=== PATIENT | male | born 1945 | race Two or more races ===

== ENCOUNTER 2020-02-16 07:49 | Outpatient (CLI) | payer OTHER | END 2020-02-16 08:04 | disposition home or self-care (01) | LOC: LAB 07:49 | PROVIDERS: ATTEND Internal Medicine Cardiovascular Disease | DX: I10 Essential (primary) hypertension (principal); E11.9 Type 2 diabetes mellitus without complications; E03.8 Other specified hypothyroidism; E78.2 Mixed hyperlipidemia; N40.0 Benign prostatic hyperplasia without lower urinary tract symptoms; E55.9 Vitamin D deficiency, unspecified; Z12.11 Encounter for screening for malignant neoplasm of colon; J44.9 Chronic obstructive pulmonary disease, unspecified ==

== ENCOUNTER 2020-02-29 10:48 | Outpatient (CLI) | payer OTHER | END 2020-02-29 10:59 | disposition home or self-care (01) | LOC: RX STUDY 10:48 | PROVIDERS: ATTEND Internal Medicine Cardiovascular Disease | DX: K21.9 Gastro-esophageal reflux disease without esophagitis (principal) ==

== ENCOUNTER 2022-12-08 09:38 | Outpatient (CLI) | payer OTHER | END 2022-12-08 09:43 | disposition home or self-care (01) | LOC: RAD 09:38 | DX: I10 Essential (primary) hypertension (principal) ==

== ENCOUNTER 2024-05-04 03:14 | Inpatient (IN) | payer OTHER ==
[~2024-05-04] VITALS: Ht 213.4 cm; Wt 69.9 kg
[2024-05-04] MEDS ORDERED: 0.9 % SODIUM CHLORIDE 1,000 ML IV ONE (03:45)
[2024-05-04 04:14] LABS: HEMATOCRIT 46.4 % (39.0-48.0); HEMOGLOBIN 15.9 g/dL (13-16.00); MEAN CORPUSCULAR HEMOGLOBIN 30.5 pg (27.00-32.0); MEAN CORPUSCULAR HGB CONC 34.2 g/dl (32.0-36.0); PLATELET COUNT 199 K/uL (150-450); RED BLOOD COUNT 5.21 M/uL (4.00-6.00); RED CELL DISTRIBUTION WIDTH 13.1 % (11.5-14.5)
[2024-05-04 04:18] LABS: PH,URINE 5.5 (5.0-8.0); URINE APPEARANCE Clear; URINE BILIRRUBIN Negative (NEGATIVE); URINE BLOOD Negative; URINE COLOR Dark Yellow; URINE GLUCOSE Negative (NEGATIVE); URINE KETONE Trace (NEGATIVE); URINE LEUKOCYTE Negative; URINE NITRATE Negative; URINE PROTEIN 30 (NEGATIVE)
[2024-05-04 04:21] LABS: URINE BACTERIA 18.8 uL (0.0-1933); URINE CAST 1.67 uL (0.0-1.40); URINE EPITHELIAL CELLS 8.3 uL (0.0-38.8); URINE RBC 13.8 uL (0.0-20.8); URINE WBC 4.7 uL (0.0-23.2)
[2024-05-04] MEDS ORDERED: DONEPEZIL HCL10 MG PO (04:27)
[2024-05-04] MEDS ORDERED: MIRTAZAPINE30 MG PO (04:27)
[2024-05-04] MEDS ORDERED: QUETIAPINE FUM400 MG PO (04:27)
[2024-05-04] MEDS ORDERED: TRAZODONE HCL150 MG (04:27)
[2024-05-04 04:28] LABS: PARTIAL THROMBOPLASTIN TIME 27.9 SECONDS (22.0-34.0); PROTHROMBIN TIME 10.9 SECONDS (9.0-11.5)
[2024-05-04] MEDS ORDERED: DEPAKOTE ER250 MG PO (04:28)
[2024-05-04] MEDS ORDERED: QUETIAPINE FUM300 MG PO (04:28)
[2024-05-04 04:35] LABS: ALBUMIN 3.2 gm/dL (3.4-5.0); BILIRUBIN TOTAL 0.33 mg/dL (0.3-1.2); CREATININE SERUM 1.48 mg/dL (0.70-1.30); GFR 45.62; GLOBULINA 3.6 G/DL (2.4-3.5); POTASSIUM 5.48 mEq/L (3.5-5.1); TOTAL PROTEIN 6.8 gm/dL (6.4-8.2)
[2024-05-04 10:41] VITALS: BP 119/81
[2024-05-04] MEDS ORDERED: ACETAMINOPHEN 500 MG GEL..CAP PO PRN (10:45)
[2024-05-04] MEDS ORDERED: 0.9 % SODIUM CHLORIDE 1,000 ML IV SCH (10:45)
[2024-05-04] MEDS ORDERED: AMINO ACIDS/PROTEIN HYDROLYS 30 ML BLIST.PACK PO SCH (10:45)
[2024-05-04] MEDS ORDERED: DONEPEZIL HCL 10 MG TABLET PO SCH ×2 (11:22→17:00)
[2024-05-04] MEDS ORDERED: QUETIAPINE FUMARATE 100 MG TABLET PO SCH ×2 (11:22→17:00)
[2024-05-04] MEDS ORDERED: TRAZODONE HCL 50 MG TABLET PO SCH ×2 (11:23→17:00)
[2024-05-04 12:05] LABS: ALBUMIN 2.8 gm/dL (3.4-5.0); CALCIUM 7.9 mg/dL (8.5-10.1); CREATININE SERUM 1.16 mg/dL (0.70-1.30); GFR 60.43; PHOSPHOROUS 2.8 mg/dL (2.5-4.9); POTASSIUM 4.68 mEq/L (3.5-5.1)
[2024-05-04 12:08] LABS: MAGNESIUM 2.2 mg/dL (1.8-2.4); PHOSPHOROUS 2.9 mg/dL (2.5-4.9)
[2024-05-04] MEDS ORDERED: REMDESIVIR 100 MG VIAL IV ONE (14:00)
[2024-05-04 14:42] LABS: C-REACTIVE PROTEIN 7.08 MG/DL (0.00-0.29); FERRITIN 607.2 NG/ML (26-388)
[2024-05-04 15:52] VITALS: BP 138/80; O2SAT 97
[2024-05-04 17:12] VITALS: BP 125/93; O2SAT 96
[2024-05-05 02:57] VITALS: BP 118/84; O2SAT 98
[2024-05-05] MEDS ORDERED: REMDESIVIR 100 MG VIAL IV SCH (09:00)
[2024-05-05] MEDS ORDERED: METOPROLOL SUCCINATE 25 MG TAB.SR.24H PO NR (10:57)
[2024-05-05 11:56] LABS: ALBUMIN 2.5 gm/dL (3.4-5.0); BILIRUBIN TOTAL 0.3 mg/dL (0.3-1.2); CALCIUM 7.7 mg/dL (8.5-10.1); CREATININE SERUM 1.08 mg/dL (0.70-1.30); GFR 65.62; POTASSIUM 3.95 mEq/L (3.5-5.1); TOTAL PROTEIN 5.5 gm/dL (6.4-8.2)
[2024-05-05] MEDS ORDERED: QUETIAPINE FUMARATE 25 MG TABLET PO SCH (12:59)
[2024-05-05 19:16] VITALS: BP 142/85; O2SAT 96
[2024-05-05] MEDS ORDERED: SENNOSIDES 1 TAB TABLET PO SCH (21:00)
[2024-05-05 22:34] VITALS: BP 112/75; O2SAT 97
[2024-05-06 02:11] VITALS: BP 116/87; O2SAT 90
[2024-05-06] MEDS ORDERED: METOPROLOL SUCCINATE 25 MG TAB.SR.24H PO SCH (09:00)
[2024-05-06 09:06] VITALS: BP 133/83
[2024-05-06 18:38] VITALS: BP 146/85; O2SAT 98
[2024-05-07 02:48] VITALS: BP 119/75; O2SAT 93
[2024-05-07 09:53] VITALS: BP 151/92
[2024-05-07 09:54] VITALS: BP 168/80
[2024-05-07 16:35] VITALS: BP 133/86
[2024-05-08 00:38] VITALS: BP 119/78; O2SAT 97
[2024-05-08 09:42] VITALS: BP 136/93; O2SAT 97
[2024-05-08 13:04] LABS: HEMATOCRIT 41.2 % (39.0-48.0); HEMOGLOBIN 14.1 g/dL (13-16.00); MEAN CELL VOLUME 87.7 fL (80.0-100.00); MEAN CORPUSCULAR HGB CONC 34.2 g/dl (32.0-36.0); PLATELET COUNT 201 K/uL (150-450); RED CELL DISTRIBUTION WIDTH 12.8 % (11.5-14.5)
[2024-05-08 13:46] LABS: CALCIUM 7.8 mg/dL (8.5-10.1); CREATININE SERUM 0.88 mg/dL (0.70-1.30); GFR 83.11; POTASSIUM 3.69 mEq/L (3.5-5.1)
[2024-05-08 16:33] VITALS: BP 130/85
[2024-05-09 01:11] VITALS: BP 132/85; O2SAT 97
[2024-05-09 08:38] VITALS: BP 147/85; O2SAT 98
[2024-05-09 15:50] VITALS: BP 138/85; O2SAT 98
[2024-05-10 01:13] VITALS: BP 115/77; O2SAT 97
[2024-05-10 09:01] VITALS: BP 130/79; O2SAT 97
[2024-05-10 16:54] VITALS: BP 150/93; O2SAT 98
[2024-05-11 01:00] VITALS: BP 105/72; O2SAT 97
[2024-05-11 08:47] VITALS: BP 139/90; O2SAT 99
[2024-05-11] MEDS ORDERED: QUETIAPINE FUMARATE 25 MG TABLET PO SCH (09:00)
== END 2024-05-11 14:22 | disposition home or self-care (01) | DRG 193 ==
LOC: ER 03:14 → MEDJ 10:53 → MEDI 10:53 → MEDJ 11:36
PROVIDERS: General Practice; Internal Medicine; Internal Medicine Infectious Disease; ADMIT Internal Medicine; ATTEND Internal Medicine
PROC: BB24ZZZ Computerized Tomography (CT Scan) of Bilateral Lungs (ICD-10-PCS; principal; 2024-05-04)
DX: J12.82 Pneumonia due to coronavirus disease 2019 (principal); U07.1 COVID-19; E86.0 Dehydration; G30.8 Other Alzheimer's disease; F02.80 Dementia in other diseases classified elsewhere, unspecified severity, without behavioral disturbance, psychotic disturbance, mood disturbance, and anxiety; R63.0 Anorexia; Z74.01 Bed confinement status

== ENCOUNTER 2024-06-02 16:47 | Inpatient (IN) | payer OTHER ==
[~2024-06-02] VITALS: Ht 162.6 cm; Wt 63.5 kg
[~2024-06-02 16:47] MED LIST: DEPAKOTE ER250 MG PO; DONEPEZIL HCL10 MG PO; MIRTAZAPINE30 MG PO; QUETIAPINE FUM300 MG PO; QUETIAPINE FUM400 MG PO; TRAZODONE HCL150 MG
--- NOTE | 2024-06-02 17:08 | NUR ---
SE RECIBE PTE MASCULINO ALERTA Y ORIENTADO EN PERSONA EN COMPANIA DE PARAMEDICOS Y FAMILIAR EN AMBULANCIA; QUIENES REFIEREN 1 EPISODIO DE VOMITO Y DESMAYO LUEGO DE JAYCOB EN EL EDGARDO DE HOY. SE REALIZA EKG Y SE MIDE BP MANUAL 100/60MMHG. SE PRESENTA A QUIEN ORDENA UBICAR PTE EN UNIDAD DE CRITICO. SE UBICA PTE EN CAMA #, SE CONECTA A MONITOR CARDIACO Y OXIMETRIA DE PULSO CONTINUO.
[2024-06-02] MEDS ORDERED: 0.9 % SODIUM CHLORIDE 1,000 ML IV SCH (17:15)
[2024-06-02 17:49] LABS: HEMATOCRIT 45.3 % (39.0-48.0); HEMOGLOBIN 15.3 g/dL (13-16.00); MEAN CORPUSCULAR HGB CONC 33.7 g/dl (32.0-36.0); PLATELET COUNT 255 K/uL (150-450); RED BLOOD COUNT 5.09 M/uL (4.00-6.00); RED CELL DISTRIBUTION WIDTH 13.6 % (11.5-14.5)
--- NOTE | 2024-06-02 18:15 | NUR ---
PTE EVALUADO POR . RN HARMAN ORIENTA A FAMILIAR SOBRE ORDEN DE [place] REFIERE COMPRENDER. COLECTAN MUETSRAS DE LABORATORIOS, BAJO MEDIDAS ASEPTICAS. PTE CON CANALIZACION DE AMBULANCIA ANGIO #18 EN MANO L+, PATENTE JORDEN DE EDEMA Y ERITEMA. SE ADMINISTRAN LIQUIDOS INTRAVENOSOS, TRENA ORDEN MEDICA. SE NOTIFICA A RADIOLOGIA PARA CT PENDIENTE.
[2024-06-02 19:33] LABS: CALCIUM 9.7 mg/dL (8.5-10.1); CREATININE SERUM 1.38 mg/dL (0.70-1.30); GFR 49.45; POTASSIUM 5.05 mEq/L (3.5-5.1)
[2024-06-02 20:25] LABS: ABG PH 7.473 (7.35-7.45); ABG PO2 76.9 mmHg (80-100); BASE EXCESS 0.8 mmol/l; BICARBONATE 23.6 mmol/l (23-25); SaO2 96.2 %; Tco2 24.7 mmol/l
[2024-06-02 20:58] LABS: URINE APPEARANCE Clear; URINE BILIRRUBIN Moderate (NEGATIVE); URINE BLOOD Negative; URINE COLOR Dark Yellow; URINE GLUCOSE Negative (NEGATIVE); URINE KETONE Trace (NEGATIVE); URINE LEUKOCYTE Small; URINE NITRATE Positive; URINE PROTEIN 30 (NEGATIVE)
[2024-06-02 21:00] LABS: URINE BACTERIA 153.7 uL (0.0-1933); URINE CAST 4.42 uL (0.0-1.40); URINE EPITHELIAL CELLS 2.3 uL (0.0-38.8); URINE RBC 9.3 uL (0.0-20.8); URINE WBC 35.8 uL (0.0-23.2)
[2024-06-02 21:07] LABS: allen test SATISFACTORY; o2 21 %; puncture site RADIAL LEFT
[2024-06-02 21:16] LABS: URINE MUCUS MODERATE
--- NOTE | 2024-06-02 23:11 | NUR ---
MASCULINO ALERTA Y ORIENTADO EN PERSONA EN UNIDAD DE ICU-2 EN MELINA POSICION MAS BAJA Y BARANDAS ELEVADAS POR SEGURIDAD. CONECTADO A MONITOR CARDIACO Y OXIMETRIA DE PULSO. CANULA NASAL A 3LT/MIN. PACIENTE CON CANALIZACIONES PATENTES LIBRES DE EDEMA Y ERITEMA CON IVF'S TRENA ORDEN MEDICA. PACIENTE RESTRINGIDO EN AMBAS EXTREMIDADES SUPERIORES. SE MIDEN S/V Y SE DOCUMENTAN EN SISTEMA. PENDIENTE REALIZAR CHEST CT.
[2024-06-03] MEDS ORDERED: CEFTRIAXONE SODIUM 1,000 MG VIAL IV STA (03:54)
--- NOTE | 2024-06-03 07:25 | NUR ---
SE RECIBE PTE ALERTA, ORIENTADO EN PERSONA. EN CAMA BAJA CON BARANDAS ELEVADAS POR SEGURIDAD. CONECTADO A MONITOR CARDIACO Y OXIMETRIA DE PULSO CONTINUA. RESTRINGIDO EN EXTYREMIDADES SUPERIORES. CANALIZADO X2 EN BRAZO IZQ, AMBAS PATENTES, JORDEN DE EDEMA Y ERITEMA, RECIBIENDO IV FLUIDS. PEND CONSULTA
[2024-06-03] MEDS ORDERED: LORazepam 2 MG/ML VIAL IM STA (08:49)
[2024-06-03 09:18] LABS: ABG PH 7.432 (7.35-7.45); ABG PO2 87.8 mmHg (80-100); ABG pCO2 37.1 mmHg (35-45); BASE EXCESS 0.3 mmol/l; BICARBONATE 24.2 mmol/l (23-25); Tco2 25.3 mmol/l
[2024-06-03 09:19] LABS: allen test SATISFACTORY; o2 32 %; puncture site RADIAL RIGHT
[2024-06-03] MEDS ORDERED: CEFTRIAXONE SODIUM 2,000 MG in 0.9 % SODIUM CHLORIDE 100 ML IV SCH (10:36)
[2024-06-03] MEDS ORDERED: ACETAMINOPHEN 500 MG GEL..CAP PO PRN (10:45)
[2024-06-03] MEDS ORDERED: 0.9 % SODIUM CHLORIDE 1,000 ML IV SCH (10:45)
[2024-06-03] MEDS ORDERED: FAMOTIDINE/PF 20 MG in 0.9 % SODIUM CHLORIDE 100 ML IV SCH ×2 (10:50→17:00)
[2024-06-03] MEDS ORDERED: QUETIAPINE FUMARATE 100 MG TABLET PO SCH ×2 (10:54→10:57)
[2024-06-03] MEDS ORDERED: DONEPEZIL HCL 10 MG TABLET PO SCH (10:56)
[2024-06-03] MEDS ORDERED: DIVALPROEX SODIUM 250 MG TABLET.DR PO SCH (10:57)
[2024-06-03] MEDS ORDERED: TRAZODONE HCL 50 MG TABLET PO SCH (10:58)
[2024-06-03 11:17] VITALS: BP 112/77; O2SAT 99
[2024-06-03 12:25] LABS: ALBUMIN 2.5 gm/dL (3.4-5.0); CALCIUM 8.2 mg/dL (8.5-10.1); CKMB 2.6 NG/ML (0.5-3.6); CREATININE SERUM 1.16 mg/dL (0.70-1.30); GFR 60.43; POTASSIUM 4.55 mEq/L (3.5-5.1)
[2024-06-03 18:58] VITALS: BP 151/72
[2024-06-04 01:04] VITALS: BP 110/78; O2SAT 98
[2024-06-04 06:15] LABS: HEMATOCRIT 35.4 % (39.0-48.0); HEMOGLOBIN 12.1 g/dL (13-16.00); MEAN CELL VOLUME 89.2 fL (80.0-100.00); MEAN CORPUSCULAR HEMOGLOBIN 30.6 pg (27.00-32.0); MEAN CORPUSCULAR HGB CONC 34.3 g/dl (32.0-36.0); PLATELET COUNT 185 K/uL (150-450); RED BLOOD COUNT 3.97 M/uL (4.00-6.00); RED CELL DISTRIBUTION WIDTH 13.7 % (11.5-14.5)
[2024-06-04 09:32] VITALS: BP 106/72; O2SAT 98
[2024-06-04 18:08] VITALS: BP 114/71; O2SAT 100
[2024-06-04] MEDS ORDERED: DIVALPROEX SODIUM 250 MG TABLET.DR PO SCH (21:00)
[2024-06-04] MEDS ORDERED: TRAZODONE HCL 50 MG TABLET PO SCH (21:00)
[2024-06-04] MEDS ORDERED: QUETIAPINE FUMARATE 100 MG TABLET PO SCH (21:00)
[2024-06-05 01:48] VITALS: BP 140/86
[2024-06-05 09:44] VITALS: BP 112/77; O2SAT 98
[2024-06-05 18:35] VITALS: BP 120/80; O2SAT 99
[2024-06-06 01:54] VITALS: BP 115/73; O2SAT 100
[2024-06-06 08:32] LABS: HEMATOCRIT 36.5 % (39.0-48.0); HEMOGLOBIN 12.5 g/dL (13-16.00); MEAN CELL VOLUME 87.6 fL (80.0-100.00); MEAN CORPUSCULAR HEMOGLOBIN 29.9 pg (27.00-32.0); MEAN CORPUSCULAR HGB CONC 34.2 g/dl (32.0-36.0); PLATELET COUNT 185 K/uL (150-450); RED BLOOD COUNT 4.16 M/uL (4.00-6.00); RED CELL DISTRIBUTION WIDTH 13.5 % (11.5-14.5)
[2024-06-06] MEDS ORDERED: MINERAL OIL 133 ML ENEMA RECTAL ONE (09:00)
[2024-06-06 09:26] LABS: ALBUMIN 2.8 gm/dL (3.4-5.0); BILIRUBIN TOTAL 0.55 mg/dL (0.3-1.2); CALCIUM 8.3 mg/dL (8.5-10.1); CREATININE SERUM 1.01 mg/dL (0.70-1.30); GFR 70.9; GLOBULINA 2.8 G/DL (2.4-3.5); POTASSIUM 4.09 mEq/L (3.5-5.1); TOTAL PROTEIN 5.6 gm/dL (6.4-8.2)
== END 2024-06-06 11:47 | disposition home or self-care (01) | DRG 690 ==
LOC: ER 16:47 → MEDJ 06-03 11:09
PROVIDERS: Emergency Medicine; General Practice; Internal Medicine; Internal Medicine Infectious Disease; ADMIT Internal Medicine; ATTEND Internal Medicine
DX: N39.0 Urinary tract infection, site not specified (principal); E86.0 Dehydration; R41.82 Altered mental status, unspecified; G30.9 Alzheimer's disease, unspecified; F02.80 Dementia in other diseases classified elsewhere, unspecified severity, without behavioral disturbance, psychotic disturbance, mood disturbance, and anxiety; R55 Syncope and collapse

== ENCOUNTER 2024-07-23 10:47 | Inpatient (IN) | payer OTHER ==
[~2024-07-23] VITALS: Ht 167.6 cm; Wt 56.7 kg
[2024-07-23] MEDS ORDERED: 0.9 % SODIUM CHLORIDE 1,000 ML IV SCH ×2 (11:15→20:30)
--- NOTE | 2024-07-23 11:19 | NUR ---
PTE LLEGAEN ABULANCIA POR FIEBRE Y OXIGENACION BAJA . SE LE MICHELINE S/V Y SE ACOMODA EN MELINA CON BARBADA ELEVADA.
[2024-07-23] MEDS ORDERED: LEVALBUTEROL HCL 0.63 MG/3 ML SOLUTION IH ONE (11:30)
--- NOTE | 2024-07-23 11:46 | NUR ---
PTE ES EVALUIADO POR EL SARAH FINN QUIE ORDENA TRATAMIENTO LA CUAL SE EJECUTA POR EL MS SINGH. SE MANTIENE BAJO OBSERVACION. .
[2024-07-23 13:02] LABS: CREATININE SERUM 1.4 mg/dL (0.70-1.30); GFR 48.64; POTASSIUM 4.22 mEq/L (3.5-5.1)
[2024-07-23 13:28] LABS: HEMATOCRIT 36.1 % (39.0-48.0); HEMOGLOBIN 11.9 g/dL (13-16.00); MEAN CELL VOLUME 89.8 fL (80.0-100.00); MEAN CORPUSCULAR HEMOGLOBIN 29.7 pg (27.00-32.0); MEAN CORPUSCULAR HGB CONC 33.1 g/dl (32.0-36.0); PLATELET COUNT 162 K/uL (150-450); RED BLOOD COUNT 4.02 M/uL (4.00-6.00); RED CELL DISTRIBUTION WIDTH 14.3 % (11.5-14.5)
[2024-07-23 19:37] LABS: PH,URINE 6.5 (5.0-8.0); URINE APPEARANCE Clear; URINE BILIRRUBIN Negative (NEGATIVE); URINE BLOOD Negative; URINE COLOR Dark Yellow; URINE GLUCOSE Negative (NEGATIVE); URINE KETONE 15 (NEGATIVE); URINE LEUKOCYTE Negative; URINE NITRATE Negative
[2024-07-23 19:38] LABS: URINE BACTERIA 6.1 uL (0.0-1933); URINE EPITHELIAL CELLS 1.4 uL (0.0-38.8); URINE RBC 11.3 uL (0.0-20.8); URINE WBC 6.1 uL (0.0-23.2)
[2024-07-23 20:05] LABS: URINE PROTEIN 100 (NEGATIVE)
[2024-07-23] MEDS ORDERED: LEVALBUTEROL HCL 1.25 MG/3 ML SOLUTION IH SCH (20:25)
[2024-07-23] MEDS ORDERED: CEFTRIAXONE SODIUM 2,000 MG in 0.9 % SODIUM CHLORIDE 100 ML IV SCH (20:31)
[2024-07-23] MEDS ORDERED: AZITHROMYCIN 500 MG in DEXTROSE 5 % IN WATER 250 ML IV SCH (20:31)
[2024-07-23] MEDS ORDERED: ACETAMINOPHEN 500 MG GEL..CAP PO PRN (20:45)
[2024-07-23] MEDS ORDERED: SODIUM CHLORIDE FOR INHALATION 1 VIAL.NEB IH SCH (21:00)
[2024-07-23] MEDS ORDERED: BUDESONIDE 0.5 MG/2 ML AMPUL.NEB IH SCH (21:00)
[2024-07-23 22:19] LABS: ABG PH 7.465 (7.35-7.45); ABG pCO2 33.7 mmHg (35-45)
[2024-07-23 22:20] LABS: ABG PO2 59.7 mmHg (80-100)
[2024-07-23 22:21] LABS: BASE EXCESS 0.7 mmol/l; BICARBONATE 23.7 mmol/l (23-25); SaO2 92.2 %; Tco2 24.8 mmol/l
[2024-07-23 22:22] LABS: allen test SATISFACTORY; o2 21 %; puncture site RADIAL RIGHT
[2024-07-24 00:56] LABS: INR 1.04; PARTIAL THROMBOPLASTIN TIME 31.6 SECONDS (22.0-34.0); PROTHROMBIN TIME 11.3 SECONDS (9.0-11.5)
[2024-07-24] MEDS ORDERED: GUAIFEN/DEXTROMETHORPHAN/PE 10 ML BLIST.PACK PO SCH (02:00)
[2024-07-24 04:55] VITALS: BP 137/83; O2SAT 98
[2024-07-24] MEDS ORDERED: AZITHROMYCIN 500 MG VIAL IV SCH (09:00)
[2024-07-24] MEDS ORDERED: ENOXAPARIN SODIUM 40 MG/0.4 ML SYRINGE SUBCUTANEO SCH (09:00)
[2024-07-24] MEDS ORDERED: VITAMIN B COMPLEX/LYSINE 1 ML ML PO SCH (09:00)
[2024-07-24] MEDS ORDERED: QUETIAPINE FUMARATE 100 MG TABLET PO SCH ×2 (09:00→12:00)
[2024-07-24] MEDS ORDERED: DIVALPROEX SODIUM 250 MG TAB.ER.24H PO SCH (09:00)
[2024-07-24] MEDS ORDERED: PANTOPRAZOLE SODIUM 40 MG/VIAL VIAL IV SCH (09:00)
[2024-07-24 10:37] LABS: ABG PH 7.456 (7.35-7.45); ABG PO2 65.8 mmHg (80-100); ABG pCO2 36.3 mmHg (35-45); BASE EXCESS 1.5 mmol/l; SaO2 93.9 %
[2024-07-24 10:38] LABS: Tco2 26.2 mmol/l; allen test SATISFACTORY; o2 21 %; puncture site RADIAL LEFT
[2024-07-24 16:00] VITALS: BP 135/83; O2SAT 97
[2024-07-24] MEDS ORDERED: TRAZODONE HCL 50 MG TABLET PO SCH (17:00)
[2024-07-24] MEDS ORDERED: DONEPEZIL HCL 5 MG TABLET PO SCH (17:00)
[2024-07-24] MEDS ORDERED: PATIENTS OWN MEDICATION (MEDICAMENTO EN PISO) PO SCH (21:00)
[2024-07-25 00:20] VITALS: BP 99/63; O2SAT 99
[2024-07-25 07:46] LABS: ALBUMIN 2.1 gm/dL (3.4-5.0); BILIRUBIN TOTAL 0.25 mg/dL (0.3-1.2); CALCIUM 7.6 mg/dL (8.5-10.1); CREATININE SERUM 1.08 mg/dL (0.70-1.30); GFR 65.62; MAGNESIUM 2.4 mg/dL (1.8-2.4); PHOSPHOROUS 2.6 mg/dL (2.5-4.9); POTASSIUM 4.01 mEq/L (3.5-5.1); TOTAL PROTEIN 5.1 gm/dL (6.4-8.2)
[2024-07-25 07:57] LABS: HEMATOCRIT 33.2 % (39.0-48.0); HEMOGLOBIN 11.3 g/dL (13-16.00); MEAN CELL VOLUME 89.7 fL (80.0-100.00); MEAN CORPUSCULAR HEMOGLOBIN 30.5 pg (27.00-32.0); PLATELET COUNT 174 K/uL (150-450); RED BLOOD COUNT 3.71 M/uL (4.00-6.00); RED CELL DISTRIBUTION WIDTH 14.4 % (11.5-14.5)
[2024-07-25 09:00] VITALS: BP 110/70; O2SAT 97
[2024-07-25 15:37] VITALS: BP 124/80; O2SAT 95
[2024-07-26 01:08] VITALS: BP 126/81; O2SAT 96
[2024-07-26 08:36] VITALS: BP 138/84; O2SAT 95
[2024-07-26 10:26] LABS: HEMOGLOBIN 12.9 g/dL (13-16.00); MEAN CELL VOLUME 90.5 fL (80.0-100.00); MEAN CORPUSCULAR HEMOGLOBIN 29.3 pg (27.00-32.0); MEAN CORPUSCULAR HGB CONC 32.3 g/dl (32.0-36.0); PLATELET COUNT 214 K/uL (150-450); RED BLOOD COUNT 4.42 M/uL (4.00-6.00); RED CELL DISTRIBUTION WIDTH 13.9 % (11.5-14.5)
[2024-07-26 11:08] LABS: CALCIUM 8.3 mg/dL (8.5-10.1); CREATININE SERUM 0.91 mg/dL (0.70-1.30); GFR 79.96; POTASSIUM 4.57 mEq/L (3.5-5.1)
[2024-07-26 16:30] VITALS: BP 132/82; O2SAT 92
[2024-07-26] MEDS ORDERED: QUETIAPINE FUMARATE 100 MG TABLET PO SCH (21:00)
[2024-07-27 00:11] VITALS: BP 137/87; O2SAT 94
[2024-07-27] MEDS ORDERED: SODIUM CHLORIDE 0.45 % 1,000 ML IV SCH (07:00)
[2024-07-27 08:00] VITALS: BP 122/75; O2SAT 95
[2024-07-27] MEDS ORDERED: GLYCERIN 2.1 GM SUPP.RECT RECTAL NR (09:00)
[2024-07-27] MEDS ORDERED: QUETIAPINE FUMARATE 100 MG TABLET PO SCH (09:00)
== END 2024-07-27 12:13 | disposition home or self-care (01) | DRG 194 ==
LOC: ER 10:47 → SURG 21:54 → SEC-K 21:54 → SURG 07-24 01:04
PROVIDERS: Emergency Medicine; General Practice; Internal Medicine; ADMIT Internal Medicine; ATTEND Internal Medicine
PROC: BW24ZZZ Computerized Tomography (CT Scan) of Chest and Abdomen (ICD-10-PCS; principal; 2024-07-23)
DX: J18.9 Pneumonia, unspecified organism (principal); N17.9 Acute kidney failure, unspecified; G30.9 Alzheimer's disease, unspecified; F02.80 Dementia in other diseases classified elsewhere, unspecified severity, without behavioral disturbance, psychotic disturbance, mood disturbance, and anxiety; Z74.01 Bed confinement status